=== PATIENT | female | born 1985 | race Two or more races ===

== ENCOUNTER 2016-07-21 14:49 | Outpatient (CLI) | payer OTHER | END 2016-07-21 14:50 | disposition home or self-care (01) | LOC: BABIESSH 14:49 | PROVIDERS: ATTEND Obstetrics & Gynecology | DX: Z39.1 Encounter for care and examination of lactating mother (principal) ==

== ENCOUNTER 2016-07-27 12:55 | Outpatient (CLI) | payer OTHER | END 2016-07-27 12:56 | disposition home or self-care (01) | LOC: BABIESSH 12:55 | PROVIDERS: ATTEND Obstetrics & Gynecology | DX: Z39.1 Encounter for care and examination of lactating mother (principal) ==

== ENCOUNTER 2016-10-26 18:47 | Emergency (ER) | payer OTHER ==
[2016-10-26] MEDS ORDERED: KETOROLAC TROMETHAMINE 60 MG/2 ML VIAL ONE (19:17)
[2016-10-26 19:42] LABS: HCG,QUALITATIVE URINE NEGATIVE
--- NOTE | 2016-10-26 20:02 | CT ---
ABD/PELVIS W/O CON: 10/26/2016 7:02 PM INDICATION: Left flank pain today. COMPARISON: CT abdomen pelvis on 08/16/2014 TECHNIQUE: Contiguous 3 mm transaxial images from a [id number] [address] scanner were obtained from the lung bases through the pubic symphysis without oral or intravenous contrast. Multiplanar images were created at the CT scanner. CT DI: 5.4 DLP: 255.8 FINDINGS: Lung base: No abnormality is seen at the lung bases. There is no pericardial effusion. This examination is limited for the evaluation of solid organs and vascular structures due to the lack of intravenous contrast which is standard for urinary calculus assessment CT. Liver: Normal. Gallbladder: Surgically absent. Spleen: Normal. Pancreas: Normal. Adrenal Glands: Normal. Right kidney & ureter: - Calculi - No . - Ureter Calculi - No. - Obstruction / hydronephrosis - No Left kidney & ureter: - Calculi - No . - Ureter Calculi- No . - Obstruction / hydronephrosis - No The unopacified stomach and bowel is within normal limits. No lymphadenopathy is seen in the abdomen or pelvis No free fluid in the abdomen or pelvis. Uterus is retroverted. Adnexa are unremarkable. Appendix is normal. Urinary bladder: -Bladder Calculi- No . - Bladder is decompressed. - Wall is thin. Bone windows- No lytic or sclerotic lesions. Spine maintains anatomic alignment. IMPRESSION: 1. No urinary tract calculi. 2. Non-contrast evaluation of the abdomen and pelvis is otherwise without significant abnormality. Findings were called to Dr. Sutton at approximately 1958 hours on 10/26/2016.
[2016-10-26 20:04] LABS: URINE BILIRUBIN NEGATIVE (NEGATIVE); URINE BLOOD TRACE (NEGATIVE); URINE GLUCOSE (UA) NEGATIVE (NEGATIVE); URINE LEUKOCYTE ESTERASE TRACE (NEGATIVE); URINE NITRITE NEGATIVE (NEGATIVE); URINE PROTEIN 1+ (NEGATIVE); URINE UROBILINOGEN 1 mg/dL (0-1 mg/dl)
[2016-10-26 20:08] LABS: URINE APPEARANCE SL CLOUDY; URINE COLOR YELLOW
[2016-10-26 20:11] LABS: URINE BACTERIA RARE; URINE RBC 0-2 /hpf; URINE WBC 0-2 /hpf
[2016-10-28 13:43] LABS: CHLAMYDIA BD Negative (Negative); N.GONORRHOEAE BD Negative (Negative); SOURCE Urine (())
== END 2016-10-26 20:22 | disposition home or self-care (01) ==
LOC: ED 18:47
DX: R10.9 Unspecified abdominal pain (principal)
CPT/HCPCS: 87491; 87591; 81025; 81001; 74176; 99283 ×2; 96372; J1885